=== PATIENT | male | born 1995 | race Hispanic/Latino ===

== ENCOUNTER 2017-02-07 11:41 | Inpatient (IN) | payer OTHER ==
[2017-02-07 12:05] LABS: Hematocrit 47.9 % (42.0-52.0); Hemoglobin 17.1 gm/dL (13.5-18.0); Mean Cell Volume 84.3 fl (78-100); Mean Corpuscular Hemoglobin 30.1 pg (27-31); Mean Corpuscular Hgb Conc 35.7 g/dl (32-36); Mean Platelet Volume 10.4 fl (6.0-9.5); Neutrophil # 9.8 K/mm3 (1.3-6.0); Neutrophil % 74.6 % (42-75.0); Platelet Count 265 K/mm3 (150-450); Red Blood Count 5.68 M/mm3 (4.7-6.0); Red Cell Distribution Width 11.9 % (11.5-14.0); White Blood Count 13.1 K/mm3 (4.0-10.5)
[2017-02-07] MEDS ORDERED: MAG HYDROX/ALUMINUM HYD/SIMETH 30 ML UDC PO ONE (12:06)
[2017-02-07] MEDS ORDERED: SUCRALFATE 1 G/10 ML UDC PO ONE (12:06)
[2017-02-07] MEDS ORDERED: LIDOCAINE HCL 20 ML UDC PO ONE (12:06)
--- NOTE | 2017-02-07 12:13 | ERNOTE ---
Abdominal HPI - Narrative Date of Service: 02/07/17 - General Chief Complaint: Abdominal Pain Time Seen by Provider: 02/07/17 12:02 Source: patient Exam Limitations: no limitations - Immun/Allergies/Home Medications Immunizatons: IMMUNIZATION HX Immunizations Up to Date Yes Allergies/Adverse Reactions: Allergies penicillin G Allergy (Verified 02/07/17 11:49) Home Medications: HOME MEDICATIONS NK [No Home Medication] 02/07/17 [Last Taken Unknown] - History of Present Illness Narrative: Pt. comes in with c/o mid upper epigastric pain that started last night and resolved but worsened again this morning when he awoke. Pt. denies any CP, SOB , NVD, fever, recent illness, or alleviating factors. Pt. states that eating or drinking exacerbates the pain. Pt. denies any prehospital treatment. Review of Systems - Review of Systems Constitutional: Present: no symptoms reported. Absent: recent illness, fever, chills, weakness, fatigue, malaise EYE: Present: no symptoms reported ENT: Present: no symptoms reported Respiratory: Present: no symptoms reported. Absent: shortness of breath, cough , wheezing Cardiology: Present: no symptoms reported. Absent: chest pain, palpitations, edema Gastrointestinal/Abdominal: Present: abdominal pain. Absent: nausea, vomiting, diarrhea Genitourinary: Present: no symptoms reported Musculoskeletal: Present: no symptoms reported. Absent: back pain, joint pain Skin: Present: no symptoms reported Neurological: Present: no symptoms reported. Absent: dizziness/light-headedness , tingling All Other Systems: All systems neg except as marked - Patient's Past Medical History Patient History - Medical: Diabetes Type 2 Patient History - Cardiac/Respiratory: No pertinent hx Patient History - Cancer: No Hx of Cancer Patient History - Surgical Procedures: No surgical history Patient History - Other: None - Social History Living Situations: home Psych History: No pertinent hx - Immunizations Immunizations Up to Date: Yes Physical Exam - Physical Exam General Appearance: Present: wd/wn, alert, no apparent distress Eye Exam: Normal inspection: bilateral, PERRL: bilateral, EOMI: bilateral Ears, Nose, Throat: Present: normal ENT inspection, normal pharynx Neck: Present: normal inspection, nontender. Absent: lymphadenopathy (R), lymphadenopathy (L) Respiratory: Present: no respiratory distress, normal breath sounds, no accessory muscle use, chest nontender, lungs clear Cardiovascular/Chest: Present: regular rate, rhythm, no murmur, normal peripheral pulses Gastrointestinal/Abdominal: Present: normal bowel sounds, nondistended, soft, no organomegaly, tenderness - mid upper epigastric Back Exam: Present: normal inspection, normal range of motion, no CVA tenderness , no vertebral tenderness Extremity Exam: Present: normal inspection, non-tender, normal range of motion, no edema Neurological Exam: Present: alert, oriented, normal mood/affect, no motor/ sensory deficits, steam flattener II-XII nml as tested, normal cerebellar test Skin Exam: Present: normal color, warm/dry. Absent: pallor, skin rash ED Progress - Date and Time Seen: Date and Time: 02/07/17 15:[address] David and she recommends obtaining CT scna and getting ETOH level and drug screen. Will admit pt. after CT scan and as BISEP score is 0 I feel that pt. has low mortality risk from this so will manage conservatively. - Results and Orders Patient's Lab Results:: I have reviewed the patient's lab results. - Vital Signs Patient's Vital Signs:: I have reviewed the patient's vital signs. Vital Signs: Vital Signs 02/07/17 11:43 Temperature 37.4 C Pulse Rate 64 Respiratory 12 Rate Blood Pressure 146/116 O2 Sat by Pulse 97 Oximetry - CT/Ultrasound CT/Ultrasound Narrative: CT with Acute pancreatitis and calcifications of the head and body of the pancreas and fatty liver disease. - Progress/Reassessment Chief Complaint: Abdominal Pain Progress:: Improved Departure - Departure Clinical Impression: Pancreatitis Qualifiers: Chronicity: acute Pancreatitis type: unspecified pancreatitis type Acute pancreatitis complication: unspecified Qualified Code(s): K85.90 - Acute pancreatitis without necrosis or infection, unspecified Disposition: [facility] Condition: Serious
[2017-02-07 12:20] LABS: Albumin * 4.1 gm/dl (3.4-5.0); Anion Gap 15.2 mmol/L (6.8-13.8); BUN/Creatinine Ratio 17.1 (9.0-21.6); Ca. Corrected For Albumin 8.8 mg/dL (8.4-10.2); Calcium * 9.2 mg/dL (7.9-10.9); Potassium 4.2 mmol/L (3.4-4.6); Total Protein 8.1 gm/dL (6.2-8.2)
[2017-02-07] MEDS ORDERED: NORMAL SALINE 1,000 ML IV ONE (12:35)
[2017-02-07 13:02] LABS: Urine Bilirubin 1 mg/dl (NEGATIVE); Urine Blood Negative /ul (NEGATIVE); Urine Ketone Large mg/dL (NEGATIVE); Urine Nitrite Negative (NEGATIVE); Urine Protein 100 mg/dL (NEGATIVE); Urine Specific Gravity 1.025 SP.GR. (1.005-1.030); Urine Urobilinogen Normal (NORMAL); Urine pH 5.5 pH (5.0-7.0)
[2017-02-07 13:16] LABS: Urine Appearance Clear; Urine Color Yellow
[2017-02-07 13:17] LABS: Urine Bacteria None Seen; Urine RBC 0-5 /hpf (0-5); Urine WBC None Seen /hpf (0-5)
[2017-02-07] MEDS ORDERED: DIATRIZOATE MEGLU/DIATRIZO SOD 30 ML BTL ONE (14:05)
[2017-02-07] MEDS ORDERED: DIATRIZOATE MEGLU/DIATRIZO SOD 30 ML BTL PO ONE (14:10)
[2017-02-07] MEDS ORDERED: MORPHINE SULFATE 2 MG/ML DISP.SYRIN IV ONE (14:49)
[2017-02-07] MEDS ORDERED: MORPHINE SULFATE 2 MG/ML DISP.SYRIN ONE (14:50)
[2017-02-07 14:58] LABS: Cocaine Ur Negative (NEGATIVE); Urine Barbiturate Negative (NEGATIVE); Urine Benzodiazepines Negative (NEGATIVE); Urine Opiates Negative (NEGATIVE); Urine PCP Negative (NEGATIVE); Urine THC Negative (NEGATIVE)
[2017-02-07] MEDS ORDERED: HYDROmorphone HCL 1 MG/ML DISP.SYRIN ONE (15:16)
[2017-02-07] MEDS ORDERED: HYDROmorphone HCL 1 MG/ML DISP.SYRIN IV ONE (15:17)
[2017-02-07] MEDS ORDERED: ONDANSETRON HCL/PF 2 MG/ML VIAL IV ONE (15:53)
[2017-02-07] MEDS ORDERED: ONDANSETRON HCL/PF 2 MG/ML VIAL ONE (16:02)
[2017-02-07] MEDS ORDERED: DEXTROSE 5%-0.5 NORMAL SALINE 1,000 ML IV PRN (16:40)
[2017-02-07 16:57] LABS: Magnesium 1.5 mg/dL (1.2-2.8); Phosphorus 3.4 mg/dL (2.2-4.2)
[2017-02-07] MEDS: NORMAL SALINE 1,000 ML IV PRN ×2 (17:22→22:50)
[2017-02-07] MEDS: HYDROmorphone HCL 1 MG/ML DISP.SYRIN IV PRN ×2 (17:34→21:54)
[2017-02-07] MEDS ORDERED: PROMETHAZINE HCL 25 MG in DEXTROSE 5 % IN WATER 50 ML IV ONE ×2 (20:12)
[2017-02-07] MEDS ORDERED: PROMETHAZINE HCL 25 MG in DEXTROSE 5 % IN WATER 50 ML IV PRN ×2 (20:12)
--- NOTE | 2017-02-07 20:41 | HP ---
Chief Complaint - Chief Complaint Date of Service: 02/07/17 Time of Service: 20:15 Chief Complaint: pancreatitis History of Present Illness: Montez is a 21 year old [place] with a PMH of uncontrolled DM and chronic pancreatitis who presented to the ER today after having epigastric abdominal pain for 1 day with n/v. no diarrhea. History of pancreatitis flares since he was a child. Patient states that pancreatits "runs in the family". Also with history of DM - takes no medications. Prior heavy etoh at the age of 19 for 2 years - states 12 pack every 2-3 days. 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 denies cp, dyspnea. Patient to be admitted for acute pancreatits. - Patient's Past Medical History Patient History - Medical: Diabetes Type 2 - uncontrolled. , Other - Chronic pancreatitis Patient History - Cardiac/Respiratory: No pertinent hx Patient History - Cancer: No Hx of Cancer Patient History - Surgical Procedures: No surgical history Patient History - Other: None - Family History Father Family History - Medical: Diabetes Type 2 Family History - Cardiac/Respiratory: No pertinent hx Family History - Cancer: No pertinent family hx Mother Family History - Medical: Diabetes Type 2 Insulin Dependent Family History - Cardiac/Respiratory: No pertinent hx Family History - Cancer: No pertinent family hx - Social History Living Situations: home Abuse History: No History of abuse Psych History: No pertinent hx Smoking Status: Former smoker Have you smoked in the past 12 months: Yes Do you dip or chew tobacco: No Smoking Stop Date: 11/03/16 Patient requests Smoking Cessation Consult: No Initiate information on Smoking Cessation: No Alcohol Use: other - prior heavy etoh use; none currently Drug Use: none, other - prior cocaine, THC and meth use - clean for 1.5 years - Immunizations Immunizations Up to Date: Yes Review Of Systems (GEN) - Review of Systems Generalized/Overall Review: Present: No Symptoms Reported EENTM: Present: No Symptoms Reported Respiratory: Present: No Symptoms Reported Cardiac: Present: No Symptoms Reported Abdominal: Present: Nausea, Abdominal Pain. Absent: Diarrhea Genitourinary: Present: No Symptoms Reported Musculoskeletal: Present: No Symptoms Reported Neurological: Present: No Symptoms Reported Skin: Present: No Symptoms Reported Endocrine: Present: No Symptoms Reported Misc: All systems neg except as marked Immunizations: IMMUNIZATION HX Immunizations Up to Date Yes Allergies/Adverse Reactions: Allergies Allergy/AdvReac Type Severity Reaction Status Date / Time penicillin G Allergy Intermediate Rash & Verified 02/07/17 17:59 itching Home Medications: HOME MEDICATIONS NK [No Home Medication] 02/07/17 [Last Taken Unknown] Exam - Exam Vital Signs: Vital Signs - Last Taken Temp 36.0 C L 02/07/17 19:00 Pulse 69 02/07/17 19:00 Resp 16 02/07/17 19:00 BP 146/69 02/07/17 19:00 Pulse Ox 97 02/07/17 19:00 Constitutional: Present: Alert, Oriented x3, Cooperative, No distress, Morbidly obese ENT Exam: Present: hearing grossly normal Eye Exam: bilateral eye: normal inspection Neck: Present: full range of motion, supple Back Exam: Present: normal inspection, no vertebral tenderness Breasts: Present: Exam deferred Respiratory: Present: chest non-tender, lungs clear, normal breath sounds, no respiratory distress, no accessory muscle use Cardiovascular/Chest: Present: normal peripheral pulses, regular rate, rhythm, no chest tenderness, no edema, no JVD Peripheral Pulses: dorsalis-pedis (R): 2+, dorsalis-pedis (L): 2+, radial (R): 2 +, radial (L): 2+ Abdomen: Present: Normal bowel sounds, soft, nondistended, tender - epigastric /Rectal: Present: Exam deferred Extremity: Present: non-tender, normal inspection, no calf tenderness Skin Exam: Present: normal color, warm/dry, no cyanosis Diagnostic Studies: Laboratory Results WBC 13.1 K/mm3 (4.0-10.5) H 02/07/17 11:58 RBC 5.68 M/mm3 (4.7-6.0) 02/07/17 11:58 Hgb 17.1 gm/dL (13.5-18.0) 02/07/17 11:58 Hct 47.9 % (42.0-52.0) 02/07/17 11:58 MCV 84.3 fl (78-100) 02/07/17 11:58 MCH 30.1 pg (27-31) 02/07/17 11:58 MCHC 35.7 g/dl (32-36) 02/07/17 11:58 RDW 11.9 % (11.5-14.0) 02/07/17 11:58 Plt Count 265 K/mm3 (150-450) 02/07/17 11:58 MPV 10.4 fl (6.0-9.5) H 02/07/17 11:58 Immature Gran % (Auto) 0.50 % (0.001-0.429) H 02/07/17 11:58 Immature Gran # (Auto) 0.06 K/mm3 (0.000-0.0310) H 02/07/17 11:58 Neutrophils % 74.6 % (42-75.0) 02/07/17 11:58 Lymphocytes % 16.3 % (20-51) L 02/07/17 11:58 Monocytes % 6.8 % (0.0-9) 02/07/17 11:58 Eosinophils % 1.4 % (0.0-3.0) 02/07/17 11:58 Basophils % 0.4 % (0.0-1.0) 02/07/17 11:58 Nucleated RBC % 0.0 k/mm3 (0-1) 02/07/17 11:58 Neutrophils # 9.8 K/mm3 (1.3-6.0) H 02/07/17 11:58 Lymphocytes # 2.1 k/mm3 (1.5-3.5) 02/07/17 11:58 Monocytes # 0.9 k/mm3 (0.0-1.0) 02/07/17 11:58 Eosinophils # 0.2 k/mm3 (0.0-0.7) 02/07/17 11:58 Absolute Basophils 0.1 k/mm3 (0.0-0.1) 02/07/17 11:58 ESR 11 mm/hr (0-10) H 02/07/17 11:58 Sodium 135 mmol/L (132-142) 02/07/17 11:58 Plasma Sodium 138 mmol/L (130-142) 02/07/17 11:58 Potassium 4.2 mmol/L (3.4-4.6) 02/07/17 11:58 Chloride 99 mmol/L (97-106) 02/07/17 11:58 Carbon Dioxide 25.0 mmol/L (24-32.6) 02/07/17 11:58 Anion Gap 15.2 mmol/L (6.8-13.8) H 02/07/17 11:58 BUN 12 mg/dL (6-23) 02/07/17 11:58 Creatinine 0.70 mg/dL (0.4-1.4) 02/07/17 11:58 Est GFR (Non-Af Amer) 149 mL/min (60-130) H 02/07/17 11:58 BUN/Creatinine Ratio 17.1 (9.0-21.6) 02/07/17 11:58 Random Glucose 308 mg/dL (70-110) H 02/07/17 11:58 Calcium 9.2 mg/dL (7.9-10.9) 02/07/17 11:58 Calcium Adj for Albumin 8.8 mg/dL (8.4-10.2) 02/07/17 11:58 Phosphorus 3.4 mg/dL (2.2-4.2) 02/07/17 Unknown Magnesium 1.5 mg/dL (1.2-2.8) 02/07/17 Unknown Total Bilirubin 1.0 mg/dL (0.0-1.1) 02/07/17 11:58 AST 24 U/L (0-48) 02/07/17 11:58 ALT 54 U/L (19-67) 02/07/17 11:58 Alkaline Phosphatase 102 U/L (50-170) 02/07/17 11:58 C-Reactive Prot, Quant 2.4 mg/dL (0.0-0.9) H 02/07/17 11:58 Total Protein 8.1 gm/dL (6.2-8.2) 02/07/17 11:58 Albumin 4.1 gm/dl (3.4-5.0) 02/07/17 11:58 Amylase 691 U/L (25-115) H 02/07/17 11:58 Lipase 26395 U/L (73-393) H 02/07/17 11:58 Urine Color Yellow 02/07/17 12:52 Urine Appearance Clear 02/07/17 12:52 Urine pH 5.5 pH (5.0-7.0) 02/07/17 12:52 Ur Specific Mcroberts 1.025 SP.GR. (1.005-1.030) 02/07/17 12:52 Urine Protein 100 mg/dL (NEGATIVE) H 02/07/17 12:52 Urine Glucose (UA) 500 mg/dL (NEGATIVE) H 02/07/17 12:52 Urine Ketones Large mg/dL (NEGATIVE) 02/07/17 12:52 Urine Blood Negative /ul (NEGATIVE) 02/07/17 12:52 Urine Nitrate Negative (NEGATIVE) 02/07/17 12:52 Urine Bilirubin 1 mg/dl (NEGATIVE) H 02/07/17 12:52 Urine Ictotest Positive (NEGATIVE) H 02/07/17 12:52 Prot Sulfosalicylic Acd 1+ mg/dL (0) 02/07/17 12:52 Urine Urobilinogen Normal EU/dl (NORMAL) 02/07/17 12:52 Ur Leukocyte Esterase Negative /ul (NEGATIVE) 02/07/17 12:52 Urine RBC 0-5 /hpf (0-5) 02/07/17 12:52 Urine WBC None seen /hpf (0-5) 02/07/17 12:52 Ur Epithelial Cells 0-5 /hpf (0-5) 02/07/17 12:52 Urine Bacteria None seen (NONE) 02/07/17 12:52 Urine Culture Comments No culture indicated 02/07/17 12:52 Urine Opiates Screen Negative (NEGATIVE) 02/07/17 12:50 Barbiturate Screen Negative (NEGATIVE) 02/07/17 12:50 Ur Phencyclidine Scrn Negative (NEGATIVE) 02/07/17 12:50 Urine Amphetamine Negative (NEGATIVE) 02/07/17 12:50 U Benzodiazepines Scrn Negative (NEGATIVE) 02/07/17 12:50 Urine Cocaine Screen Negative (NEGATIVE) 02/07/17 12:50 Urine Marijuana (THC) Negative (NEGATIVE) 02/07/17 12:50 Ethyl Alcohol Less than 3.0 mg/dL (0.0-10.0) 02/07/17 Unknown Serum Ketones Negative (NEGATIVE) 02/07/17 11:58 Assessment/Plan - Narrative Narrative: Acute Pancreatitis - acute on chronic pancreatitis - NS at 200 ml / hr IVF - stop D5NS due to uncontrolled diabetes - Check K+, Mg+ and Phosphorus - replace if needed. - adequate pain control with iv medications - iv nausea medications as needed - bowel rest - NPO - recheck labs in am - check fasting lipid panel in am. Diabetes, uncontrolled - educated on extermination supervisor effects to body of uncontrolled diabetes - accu-checks q 6 hours with sliding scale insulin as needed - check hgbA1c - will need diabetes education - ? d/c with starting dose of diabetes medication and f/u appt ? Code status: Full Code VTE: lovenox GI Proph: protonix. - Assessment/Plan (1) Pancreatitis Problem: Acute Qualifiers: Chronicity: acute Pancreatitis type: unspecified pancreatitis type Acute pancreatitis complication: unspecified Qualified Code(s): K85.90 - Acute pancreatitis without necrosis or infection, unspecified (2) Uncontrolled diabetes mellitus Problem: Chronic Qualifiers: Diabetes mellitus type: type 2 Diabetes mellitus complication status: with hyperglycemia Diabetes mellitus extermination supervisor insulin use: without extermination supervisor use Qualified Code(s): E11.65 - Type 2 diabetes mellitus with hyperglycemia (3) History of heavy alcohol consumption Problem: Chronic (4) History of illicit drug use Problem: Chronic (5) History of chronic pancreatitis Problem: Chronic (6) Family history of chronic pancreatitis Problem: Chronic
[2017-02-07] MEDS: INSULIN LISPRO 100 UNITS/ML VIAL SC SCH (21:18)
[2017-02-07] MEDS: ENOXAPARIN SODIUM 40 MG/0.4 ML SYRG SC SCH (21:19)
[2017-02-07] MEDS: MAGNESIUM OXIDE 400 MG TABLET PO SCH (21:19)
[2017-02-07] MEDS: SENNOSIDES/DOCUSATE SODIUM 1 TAB TABLET PO SCH (21:20)
[2017-02-07] MEDS: PANTOPRAZOLE SODIUM 40 MG in NORMAL SALINE 100 ML IV SCH (21:55)
[2017-02-08] MEDS: INSULIN LISPRO 100 UNITS/ML VIAL SC SCH ×4 (02:48→20:24)
[2017-02-08] MEDS: NORMAL SALINE 1,000 ML IV PRN ×3 (03:14→15:20)
[2017-02-08 05:31] LABS: Hematocrit 42.9 % (42.0-52.0); Hemoglobin 14.9 gm/dL (13.5-18.0); Mean Cell Volume 86.3 fl (78-100); Mean Corpuscular Hgb Conc 34.7 g/dl (32-36); Mean Platelet Volume 10.4 fl (6.0-9.5); Neutrophil # 6.4 K/mm3 (1.3-6.0); Neutrophil % 65.4 % (42-75.0); Platelet Count 220 K/mm3 (150-450); Red Blood Count 4.97 M/mm3 (4.7-6.0); Red Cell Distribution Width 12.2 % (11.5-14.0); White Blood Count 9.8 K/mm3 (4.0-10.5)
[2017-02-08 05:45] LABS: Albumin * 3.5 gm/dl (3.4-5.0); Anion Gap 11.4 mmol/L (6.8-13.8); BUN/Creatinine Ratio 11.8 (9.0-21.6); Bilirubin, Total 0.9 mg/dL (0.0-1.1); Ca. Corrected For Albumin 8.7 mg/dL (8.4-10.2); Calcium * 8.6 mg/dL (7.9-10.9); Carbon Dioxide 30.4 mmol/L (24-32.6); Potassium 3.8 mmol/L (3.4-4.6); Total Protein 7.1 gm/dL (6.2-8.2)
[2017-02-08 06:13] LABS: Hemoglobin A1C 10.4 % (4.00-6.0)
[2017-02-08] MEDS: SENNOSIDES/DOCUSATE SODIUM 1 TAB TABLET PO SCH ×2 (08:09→20:25)
[2017-02-08] MEDS: MAGNESIUM OXIDE 400 MG TABLET PO SCH ×3 (08:09→17:15)
[2017-02-08] MEDS: ENOXAPARIN SODIUM 40 MG/0.4 ML SYRG SC SCH (09:07)
[2017-02-08] MEDS ORDERED: ACETAMINOPHEN 325 MG TABLET PO PRN (19:28)
--- NOTE | 2017-02-08 19:34 | PN ---
Subjective - Date and Time Seen Date: 02/08/17 Time: 19:29 Subjective Narrative: c/o headache. abdominal pain improving. Objective - Review of Systems Generalized/Overall Review: Reports: Fatigue. Denies: Chills, Fever EENTM: Reports: No Symptoms Reported Respiratory: Reports: No Symptoms Reported Cardiac: Reports: No Symptoms Reported Abdominal: Reports: Abdominal Pain. Denies: Nausea, Vomiting, Diarrhea Genitourinary Symptoms: Reports: No Symptoms Reported Musculoskeletal Complaints: Reports: No Symptoms Reported Neurological: Reports: Headache Skin: Reports: No Symptoms Reported Endocrine: Reports: No Symptoms Reported Misc: All systems neg except as marked - Vitals Vitals: Last Vital Signs Temp 36.9 C 02/08/17 18:28 Pulse 60 02/08/17 18:28 Resp 16 02/08/17 18:28 BP 119/63 02/08/17 18:28 Pulse Ox 99 02/08/17 18:28 - Abnormal Lab Findings Abnormal Lab Findings: Abnormal Lab Results 02/08/17 02/08/17 02/08/17 Range/Units 05:25 05:25 05:25 MPV 10.4 H (6.0-9.5) fl Neutrophils # 6.4 H (1.3-6.0) K/mm3 Est GFR (Non-Af Amer) 135 H (60-130) mL/min Random Glucose 232 H (70-110) mg/dL Hemoglobin A1c 10.4 H (4.00-6.0) % Triglycerides (30-200) mg/dL LDL Cholesterol (70-130) mg/dL VLDL Cholesterol (5-40) mg/dL HDL Cholesterol (40-60) mg/dL Cholesterol/HDL Ratio (3.3-5.0) mg/dL Amylase 245 H (25-115) U/L Lipase 2456 H (73-393) U/L 02/08/17 Range/Units 05:25 MPV (6.0-9.5) fl Neutrophils # (1.3-6.0) K/mm3 Est GFR (Non-Af Amer) (60-130) mL/min Random Glucose (70-110) mg/dL Hemoglobin A1c (4.00-6.0) % Triglycerides 612 H (30-200) mg/dL LDL Cholesterol 48 L (70-130) mg/dL VLDL Cholesterol 122 H (5-40) mg/dL HDL Cholesterol 24 L (40-60) mg/dL Cholesterol/HDL Ratio 8.0 H (3.3-5.0) mg/dL Amylase (25-115) U/L Lipase (73-393) U/L - Exam Constitutional: Present: Alert, Cooperative, No distress ENT Exam: Present: hearing grossly normal Neck: Present: full range of motion, supple Breasts: Present: Exam deferred Respiratory: Present: lungs clear, normal breath sounds, no respiratory distress Cardiovascular/Chest: Present: normal peripheral pulses, regular rate, rhythm, no chest tenderness, no edema, no JVD Abdomen: Present: soft, nondistended, tender - mild epigastric /Rectal: Present: Exam deferred Extremity: Present: non-tender, normal inspection, no pedal edema Skin Exam: Present: normal color, warm/dry, no cyanosis Assessment/Plan Plan Narrative: Acute Pancreatitis - acute on chronic pancreatitis - IVF running - add K+ to IVF. - adequate pain control with iv medications - iv nausea medications as needed - bowel rest - NPO - recheck labs in am Diabetes, uncontrolled - educated on termite control servicer effects to body of uncontrolled diabetes - accu-checks q 6 hours with sliding scale insulin as needed - will need diabetes education - ? d/c with starting dose of diabetes medication and f/u appt ? Code status: Full Code VTE: lovenox GI Proph: protonix. - Problems/Diagnosis (1) Pancreatitis Problem: Acute Qualifiers: Chronicity: acute Pancreatitis type: unspecified pancreatitis type Acute pancreatitis complication: unspecified Qualified Code(s): K85.90 - Acute pancreatitis without necrosis or infection, unspecified (2) Uncontrolled diabetes mellitus Problem: Chronic Qualifiers: Diabetes mellitus type: type 2 Diabetes mellitus complication status: with hyperglycemia Diabetes mellitus detention insulin use: without termite control servicer use Qualified Code(s): E11.65 - Type 2 diabetes mellitus with hyperglycemia (3) History of heavy alcohol consumption Problem: Chronic (4) History of illicit drug use Problem: Chronic (5) History of chronic pancreatitis Problem: Chronic (6) Family history of chronic pancreatitis Problem: Chronic
[2017-02-08] MEDS: ENOXAPARIN SODIUM 30 MG/0.3 ML SYRG SC SCH (20:25)
[2017-02-08] MEDS: POTASSIUM CHLORIDE 40 MEQ in NORMAL SALINE 1,000 ML IV SCH (20:29)
[2017-02-08] MEDS: PANTOPRAZOLE SODIUM 40 MG in NORMAL SALINE 100 ML IV SCH (20:31)
[2017-02-09] MEDS: INSULIN LISPRO 100 UNITS/ML VIAL SC SCH ×2 (02:32→08:38)
--- NOTE | 2017-02-09 02:36 | PN ---
Subjective - Date and Time Seen Date: 02/09/17 Time: 02:34 Subjective Narrative: no n/v. no abdominal pain. would like to eat. wants to go home. Objective - Review of Systems Generalized/Overall Review: Reports: No Symptoms Reported EENTM: Reports: No Symptoms Reported Respiratory: Reports: No Symptoms Reported Cardiac: Reports: No Symptoms Reported Abdominal: Reports: No Symptoms Reported Genitourinary Symptoms: Reports: No Symptoms Reported Musculoskeletal Complaints: Reports: No Symptoms Reported Neurological: Reports: No Symptoms Reported Skin: Reports: No Symptoms Reported Endocrine: Reports: No Symptoms Reported Misc: All systems neg except as marked - Vitals Vitals: Last Vital Signs Temp 36.4 C L 02/08/17 23:20 Pulse 55 L 02/08/17 23:20 Resp 18 02/08/17 23:20 BP 126/64 02/08/17 23:20 Pulse Ox 98 02/08/17 23:20 - Abnormal Lab Findings Abnormal Lab Findings: Abnormal Lab Results 02/08/17 02/08/17 02/08/17 Range/Units 05:25 05:25 05:25 MPV 10.4 H (6.0-9.5) fl Neutrophils # 6.4 H (1.3-6.0) K/mm3 Est GFR (Non-Af Amer) 135 H (60-130) mL/min Random Glucose 232 H (70-110) mg/dL Hemoglobin A1c 10.4 H (4.00-6.0) % Triglycerides (30-200) mg/dL LDL Cholesterol (70-130) mg/dL VLDL Cholesterol (5-40) mg/dL HDL Cholesterol (40-60) mg/dL Cholesterol/HDL Ratio (3.3-5.0) mg/dL Amylase 245 H (25-115) U/L Lipase 2456 H (73-393) U/L 02/08/17 Range/Units 05:25 MPV (6.0-9.5) fl Neutrophils # (1.3-6.0) K/mm3 Est GFR (Non-Af Amer) (60-130) mL/min Random Glucose (70-110) mg/dL Hemoglobin A1c (4.00-6.0) % Triglycerides 612 H (30-200) mg/dL LDL Cholesterol 48 L (70-130) mg/dL VLDL Cholesterol 122 H (5-40) mg/dL HDL Cholesterol 24 L (40-60) mg/dL Cholesterol/HDL Ratio 8.0 H (3.3-5.0) mg/dL Amylase (25-115) U/L Lipase (73-393) U/L - Exam Constitutional: Present: Alert, Cooperative, No distress, Morbidly obese ENT Exam: Present: hearing grossly normal Neck: Present: full range of motion, supple Respiratory: Present: lungs clear, normal breath sounds, no accessory muscle use Cardiovascular/Chest: Present: normal peripheral pulses, regular rate, rhythm, no chest tenderness Abdomen: Present: Normal bowel sounds, soft, nontender, nondistended Extremity: Present: non-tender, normal inspection Skin Exam: Present: normal color, warm/dry, no cyanosis Assessment/Plan Plan Narrative: Acute Pancreatitis - acute on chronic pancreatitis - IVF running - nause and abdomina pain have resolved - awaiting am labs - if wnl, will start to advance diet slowly Diabetes, uncontrolled - educated on mcc effects to body of uncontrolled diabetes - accu-checks q 6 hours with sliding scale insulin as needed - will need diabetes education - ? d/c with starting dose of diabetes medication and f/u appt ? Code status: Full Code VTE: lovenox GI Proph: protonix. - Problems/Diagnosis (1) Pancreatitis Problem: Acute Qualifiers: Chronicity: acute Pancreatitis type: unspecified pancreatitis type Acute pancreatitis complication: unspecified Qualified Code(s): K85.90 - Acute pancreatitis without necrosis or infection, unspecified (2) Uncontrolled diabetes mellitus Problem: Chronic Qualifiers: Diabetes mellitus type: type 2 Diabetes mellitus complication status: with hyperglycemia Diabetes mellitus mcc insulin use: without middle or intermediate school principal use Qualified Code(s): E11.65 - Type 2 diabetes mellitus with hyperglycemia (3) History of heavy alcohol consumption Problem: Chronic (4) History of illicit drug use Problem: Chronic (5) History of chronic pancreatitis Problem: Chronic (6) Family history of chronic pancreatitis Problem: Chronic
[2017-02-09] MEDS: POTASSIUM CHLORIDE 40 MEQ in NORMAL SALINE 1,000 ML IV SCH ×3 (04:25→20:20)
[2017-02-09 05:39] LABS: Hematocrit 39.8 % (42.0-52.0); Hemoglobin 13.6 gm/dL (13.5-18.0); Mean Cell Volume 87.9 fl (78-100); Mean Corpuscular Hgb Conc 34.2 g/dl (32-36); Mean Platelet Volume 10.7 fl (6.0-9.5); Neutrophil # 4.1 K/mm3 (1.3-6.0); Neutrophil % 52.7 % (42-75.0); Platelet Count 186 K/mm3 (150-450); Red Blood Count 4.53 M/mm3 (4.7-6.0); Red Cell Distribution Width 12.3 % (11.5-14.0); White Blood Count 7.8 K/mm3 (4.0-10.5)
[2017-02-09 05:57] LABS: Anion Gap 12.5 mmol/L (6.8-13.8); Bilirubin, Total 0.8 mg/dL (0.0-1.1); Ca. Corrected For Albumin 8.8 mg/dL (8.4-10.2); Calcium * 8.3 mg/dL (7.9-10.9); Carbon Dioxide 26.9 mmol/L (24-32.6); Potassium 4.4 mmol/L (3.4-4.6); Total Protein 6.3 gm/dL (6.2-8.2)
[2017-02-09] MEDS: ENOXAPARIN SODIUM 30 MG/0.3 ML SYRG SC SCH ×2 (08:39→20:17)
[2017-02-09] MEDS: SENNOSIDES/DOCUSATE SODIUM 1 TAB TABLET PO SCH ×2 (08:39→20:17)
[2017-02-09] MEDS: MAGNESIUM OXIDE 400 MG TABLET PO SCH ×3 (08:39→16:25)
[2017-02-09] MEDS: PANTOPRAZOLE SODIUM 40 MG in NORMAL SALINE 100 ML IV SCH (20:16)
[2017-02-10] MEDS: POTASSIUM CHLORIDE 40 MEQ in NORMAL SALINE 1,000 ML IV SCH (04:39)
[2017-02-10] MEDS: ENOXAPARIN SODIUM 30 MG/0.3 ML SYRG SC SCH (08:37)
[2017-02-10] MEDS: SENNOSIDES/DOCUSATE SODIUM 1 TAB TABLET PO SCH (08:37)
[2017-02-10] MEDS: MAGNESIUM OXIDE 400 MG TABLET PO SCH ×2 (08:37→13:42)
[2017-02-10 09:45] VITALS: BP 124/70
--- NOTE | 2017-02-10 13:00 | DS ---
(1) Acute on chronic pancreatitis Problem: Acute (2) Family history of chronic pancreatitis Problem: Chronic (3) Morbid obesity Diagnosis(s): BMI-45.0 Problem: Chronic (4) Uncontrolled diabetes mellitus Diagnosis(s): New onset A1c 10.4 [ 260 mg/dl].- Problem: Acute Qualifiers: Diabetes mellitus type: type 2 Diabetes mellitus complication status: with hyperglycemia Diabetes mellitus usp insulin use: without usp use Qualified Code(s): E11.65 - Type 2 diabetes mellitus with hyperglycemia Description of Stay: DATE OF ADMISSION: 02/07/2017. DATE OF DISCHARGE: 02/10/2017. DIAGNOSTICS: CT OF ABDOMEN/PELVIS W/ 02/07/2017. DISCHARGE SUMMARY: Montez Pittman is a 21-year-old male with a history of chronic pancreatitis since age 9 [seventh episode] admitted with N,V and abdominal pain after eating the cheesecake. H/O heavy EtOH abuse 2 years [ (6-12 beers / daily) quit 6 months ago] drug abuse[ cocaine, THC and meth- no IV] quit 2014. Significant labs lipase 11493 u/ml amylase 691u/ml. CT abdomen/pelvis w/ 02/07/17: Acute uncomplicated pancreatitis; coarse calcifications in the head and proximal body of the pancreas c/w underlying changes of chronic pancreatitis. Fatty hepatomegaly. Patient has a strong family history of pancreatitis. [ Paternal GM: 40s - adenoca pancreas, chronic pancreatitis. Father 49 chronic pancreatitis. Mother 47 DM. Paternal aunts-31, 42-chronic pancreatitis.] The patient was kept NPO and given IV fluids. Was given Dilaudid for pain. Amylase and lipase trended down. At the time of discharge [02/09] amylase/ lipase were . A1c 10.4[260 mg/dL]. Patient states he was never diagnosed with T2 DM. Diet was advanced. Girlfriend who does cooking speaks only Arabic. Attempted to make an appointment at [facility] for his above problems as he would also need a dietitian in Arabic however he stated that [place] be [place] of [place]. Patient was advised to adhere consistent carb, low-fat diet to prevent further episodes. A total of 50 minutes was spent in this discussing test results, patient education[weight loss, exercise, carb counting, low-fat diet etc.], plan of care, preparation and dictation of discharge summary. . Procedures Performed: none Results and Findings: Laboratory Tests 02/07/17 02/08/17 02/09/17 11:58 05:25 05:30 Amylase 691 H 245 H 98 Lipase 94123 H 2456 H 1009 H 02/08/17 05:25 Triglycerides 612 H Cholesterol 194 LDL Cholesterol 48 L VLDL Cholesterol 122 H HDL Cholesterol 24 L Cholesterol/HDL Ratio 8.0 H 02/07/17 02/08/17 02/09/17 11:58 05:25 05:30 WBC 13.1 H 9.8 D 7.8 D Hgb 17.1 14.9 13.6 Hct 47.9 42.9 39.8 L Plt Count 265 220 186 02/07/17 02/08/17 02/09/17 11:58 05:25 05:30 Plasma Sodium 138 142 141 Potassium 4.2 3.8 4.4 Chloride 99 102 105 Carbon Dioxide 25.0 30.4 26.9 BUN 12 9 9 Creatinine 0.70 0.76 0.60 Est GFR (Non-Af Amer) 149 H 135 H 177 H D Calcium Adj for Albumin 8.8 8.7 8.8 Total Bilirubin 1.0 0.9 0.8 AST 24 14 29 ALT 54 41 35 Alkaline Phosphatase 102 82 71 Total Protein 8.1 7.1 6.3 Albumin 4.1 3.5 3.0 L 02/07/17 Unknown Phosphorus 3.4 Magnesium 1.5 Toxicology screen: 02/07/2017: NEGATIVE. CT ABDOMEN/PELVIS W/C: 02/07/2017: 15:52: IMPRESSION: 1. ACUTE UNCOMPLICATED PANCREATITIS. 2. ADDITIONALLY THERE ARE COARSE CALCIFICATIONS IN THE HEAD AND PROXIMAL BODY OF THE PANCREAS CONSISTENT WITH UNDERLYING CHANGES OF CHRONIC PANCREATITIS ALSO SUGGESTED. 3. FATTY HEPATOMEGALY. Discharge Disposition: Home self care Disposition: Home self-care Condition: Undetermined Discharge Activity: Activity as tolerated Discharge Diet: Consistent carbs, Low fat/chol, High Fiber Problem Oriented Discharge Instructions to Patient/Family: Form - Daily Diabetes Record, Hyperglycemia, [id number], Type 2 Diabetes Mellitus, Adult, [id number], Blood Glucose Monitoring, Adult Additional Patient Instructions (free text): Please get appt for patient at [facility] - chronic pancreatitis x7 since age of 9. morbid obesity, T2 DM with A1C of 10.4 [ 260 mg/dl]. Also has family H/O Also needs - dietary counseling in maltese as girlfriend does all the cooking. Prescription for glucometer.. Patient needs to document blood sugars in a staggered fashion. Call physician if blood sugars get low. Appointment with PCP in 2-[address] Dr[address] David on 02-27-17 @ 10:45 am. please be here at 10: 15am to fill out paperwork and bring at least 100 dollars with you to appointment for payment. Exercise for 30 minutes daily [working does not count. ]. Prescriptions (Any new or edited meds): metFORMIN HCL [Metformin HCl ER] 1,000 mg PO BID #[id number] Complete Home Medications List: Complete Home Medication List: metFORMIN HCL [Metformin HCl ER] 1,000 mg PO BID #[id number] 02/10/17
== END 2017-02-10 16:00 | disposition home or self-care (01) | DRG 439 ==
LOC: ER 11:41 → OBSVTOIN 16:22 → MS 16:22
PROVIDERS: ADMIT Internal Medicine; ATTEND Internal Medicine
DX: K85.90 Acute pancreatitis without necrosis or infection, unspecified (principal); Z68.42 Body mass index [BMI] 45.0-49.9, adult; E11.65 Type 2 diabetes mellitus with hyperglycemia; K76.0 Fatty (change of) liver, not elsewhere classified; F10.10 Alcohol abuse, uncomplicated; Z84.89 Family history of other specified conditions; Z87.898 Personal history of other specified conditions; E66.01 Morbid (severe) obesity due to excess calories; Z71.3 Dietary counseling and surveillance